=== PATIENT | female | born 1940 | race Caucasian/White ===

== ENCOUNTER 2017-05-03 11:27 | Inpatient (IN) | payer MEDICARE, BC ==
[~2017-05-03] VITALS: Ht 165.1 cm; Wt 77.1 kg
[2017-05-03] VITALS (8 sets, daily range): BP systolic 99–119; BP diastolic 46–66
--- NOTE | 2017-05-03 11:30 | NUR ---
BIBDTR FROM [facility] DT BLOOD IN STOOL SINCE THIS AM, NAD NOTED, VSS, RESP EVEN AND UNLABORED, PUT ON HOSPITAL GOWN AND MONITOR. WAITING FOR MD REBOLLAR.
--- NOTE | 2017-05-03 11:55 | NUR ---
XRAY AT BS
[2017-05-03] MEDS ORDERED: IV NS 0.9% 500 ML BAG IV ONE (12:00)
--- NOTE | 2017-05-03 12:07 | NUR ---
IV INSERTED, BLOOD SAMPLE SENT TO LAB
[2017-05-03 12:08] LABS: BASOPHILS % (AUTO) 0.3 % (0.0-2.0); EOSINOPHILS # (AUTO) 0.1 /CMM (0.0-0.7); EOSINOPHILS % (AUTO) 0.5 % (0.0-6.0); HEMATOCRIT 24 % (33-45); HEMOGLOBIN 7.8 g/dL (11.5-14.8); LYMPHOCYTES # (AUTO) 0.9 /CMM (0.8-4.8); MEAN CORPUSCULAR HEMOGLOBIN 29 PG (26.0-33.0); MEAN CORPUSCULAR HGB CONC 33 g/dl (31.0-36.0); MEAN CORPUSCULAR VOLUME 90 fL (82-100); MONOCYTES # (AUTO) 0.4 /CMM (0.1-1.30); NEUTROPHILS # (AUTO) 8.9 /CMM (1.8-8.9); NEUTROPHILS % (AUTO) 86.2 % (43.0-81.0); PLATELET COUNT (AUTO) 433 /CMM (150-450); RDW COEFFICIENT OF VARIATION 13.1 (11.5-15.0); RED BLOOD CELL COUNT(AUTO) 2.67 MIL/uL (4.0-5.2); WHITE BLOOD COUNT (AUTO) 10.3 K/uL (4.3-11.0)
[2017-05-03 12:17] LABS: CALCIUM, SERUM 9.2 mg/dL (8.5-10.1); CARBON DIOXIDE 24 mmol/L (21-32); CHLORIDE 113 mmol/L (98-107); CREATININE 1.8 mg/dL (0.6-1.3); GLUCOSE 188 mg/dL (74-106); POTASSIUM 4.4 mmol/L (3.5-5.1); SODIUM SERUM 147 mmol/L (136-145); UREA NITROGEN, BLOOD 59 mg/dL (7-18)
[2017-05-03 12:21] LABS: INR 1.03 (0.87-1.13); PROTHROMBIN TIME 10.7 SECS (9.5-12.7)
[2017-05-03 12:23] LABS: ALANINE AMINOTRANSFERASE 8 U/L (12-78); ALBUMIN 2.9 g/dL (3.4-5.0); ALKALINE PHOSPHATASE 40 U/L (46-116); ASPARTATE AMINOTRANSFERASE 15 U/L (15-37); BILIRUBIN,DIRECT 0.1 mg/dL (0.0-0.2); BILIRUBIN,TOTAL 0.1 mg/dL (0.2-1.0); LIPASE 216 U/L (73-393); TOTAL PROTEIN, SERUM 6.5 g/dL (6.4-8.2)
--- NOTE | 2017-05-03 12:23 | NUR ---
Keerthi moyer in [facility] - 05/03/17 at 1332 by MONA BARBIE [place]
[2017-05-03 12:25] LABS: TROPONIN I 0.019 ng/mL (0.00-0.056)
--- NOTE | 2017-05-03 12:27 | NUR ---
CALLED PHARMACY FOR PROTONIX
[2017-05-03] MEDS ORDERED: PANTOPRAZOLE 80 MG in IV NS 0.9% 500 ML IV ONE (12:30)
--- NOTE | 2017-05-03 12:53 | NUR ---
Keerthi moyer in [facility] - 05/03/17 at 1332 by MNOA BARBIE [place]
--- NOTE | 2017-05-03 12:57 | NUR ---
DR TAPIA AT BS
--- NOTE | 2017-05-03 13:23 | NUR ---
REPORT GIVEN TO GIULIANO URENA
--- NOTE | 2017-05-03 13:23 | NUR ---
[place] PAINTER NOTE RECEIVED REPORT FROM GIULIANO SHIPLEY.
[2017-05-03] MEDS ORDERED: ACETAMINOPHEN 325 MG TABLET PO PRN (13:30)
[2017-05-03] MEDS ORDERED: Z GUARD REMEDY 2 OZ OINT TP PRN (13:30)
[2017-05-03] MEDS ORDERED: ONDANSETRON HCL/PF 4 MG/2 ML VIAL IVP PRN (13:30)
[2017-05-03] MEDS ORDERED: PANTOPRAZOLE 40 MG VIAL IV SCH (13:30)
--- NOTE | 2017-05-03 13:45 | NUR ---
GUEST SERVICE AIDETRUER PINION AND WHEEL NOTE PATIENT ARRIVED TO THE UNIT VIA GOURNEY FROM ED C
[2017-05-03] MEDS ORDERED: METF500T4 PO (16:10)
[2017-05-03] MEDS ORDERED: AMLO10TA2 PO (16:10)
[2017-05-03] MEDS ORDERED: ACET325T53 PO (16:10)
[2017-05-03] MEDS ORDERED: FENO145T20 PO (16:10)
[2017-05-03] MEDS ORDERED: MELO-264 PO (16:10)
[2017-05-03] MEDS ORDERED: DONE23TA3 PO (16:10)
[2017-05-03] MEDS ORDERED: MEMA28CA PO (16:10)
[2017-05-03] MEDS ORDERED: ACET-868 PO (16:10)
[2017-05-03] MEDS ORDERED: ONDA4TAB5 PO (16:10)
--- NOTE | 2017-05-03 16:34 | NUR ---
STRATEGIC INSIGHTS LEADPRODUCTION CONTROL EXPERT NOTE (CORRECTED/FULL) PATIENT ARRIVED TO THE UNIT VIA GURNEY FROM ED ACCOMPANIED BY THE RN, RAM PRESS OPERATOR AND THE DAUGHTER/POA. PATIENT IS ALERT, DISORIENTED, CONFUSED. R/AC 20 GAUGE IV IS INTACT AND PATENT. PANTOPRAZOLE IV RUNNING AR 52 ML/HR PRESCRIBED. PATIENT IS SAFELY TRANSFERED TO THE BED FROM THE RNEY. BED IS LOCKED, IN LOWEST POSITION. SIDE RAILS UP X 3. BED ALARM IS ON. CALL LIGHT IS ACCESSIBLE. ALL NEEDS ARE ATTENDED TO. WILL CONTINUE TO MONITOR.
[2017-05-03] MEDS: AMLODIPINE BESYLATE 10 MG TABLET PO SCH (17:30)
[2017-05-03] MEDS ORDERED: PANTOPRAZOLE 80 MG in IV NS 0.9% 500 ML IV PRN (17:30)
[2017-05-03] MEDS ORDERED: Medication Not On Formulary EA (Donepezil HCl 23 MG) PO SCH (17:30)
[2017-05-03] MEDS ORDERED: METFORMIN 500 MG TABLET PO SCH (17:30)
[2017-05-03] MEDS: IV NS 0.9% 1,000 ML IV PRN (19:11)
[2017-05-03] MEDS: FENOFIBRATE NANOCRYS (145 MG) 145 MG TABLET PO SCH (19:12)
--- NOTE | 2017-05-03 19:30 | NUR ---
RN NOTES: RECEIVED AWAKE ON BED WITH HER DAUGHTER PRESENT AT BED SIDE, ON TELE MONITOR SR-100,IV INTACT G#20,CONFUSED BUT ABLE TO ANSWER QUESTION,IV PANTOPRAZOLE ONGOING AT 52 ML/HR.FALL,SAFETY AND ASPIRATION PRECAUTION OBSERVED.PER ENDORSEMENT FOR BT OF 2 UNITS HG-7.8,WILL MONITOR FOR SIGN OF BLEEDING,ON NITRATING ACID MIXER SR-100.
--- NOTE | 2017-05-03 19:35 | NUR ---
AUTO GLASS INSTALLER CLOSING NOTE PATIENT IS RESTING IN BED, SLEEPING, VWNL. R/AC 20 GAUGE IV IS INTACT AND PATENT. PANTOPRAZOLE IV RUNNING AR 52 ML/HR PRESCRIBED. BED IS LOCKED, IN LOWEST POSITION. SIDE RAILS UP X 3. BED ALARM IS ON. CALL LIGHT IS ACCESSIBLE. ALL NEEDS ARE ATTENDED TO. WILL ENDORSE TO THE SOLE SEWER HAND NURSE FOR ANUJ.
--- NOTE | 2017-05-03 20:25 | NUR ---
RN NOTES: -AT 2014 1ST UNIT OF BLOOD TAKEN FROM THE LAB,VERIFIED BLOOD AND RELEASE BY SENIOR MERCHANDISER-MARCO. - DAUGHTER IN PRESENT AT BED SIDE UPON STARTING THE BT,V/S BP-115/46 VT-106 RR-18 T-96.6 SPO2-93% RA. -1ST UNIT RBC STARTED AT 2014,TYPE O POSITIVE,, UNIT NO:[id number],287 ML., EXPIRY ON 05/25/17,BAG CHECKED,VERIFIED WITH ANOTHER RN,CHARGE NURSE NOTIFIED BT WILL BE STARTED.
--- NOTE | 2017-05-03 20:30 | NUR ---
RN NOTES: EKG WAS DONE BY RT, NSR WITH RBBB,RECEIVED CALL FROM [id number] WITH ([facility])THEY CANNOT EXTRACT BLOOD FOR TROPONIN LEVEL DUE TO BT ONGOING,WILL INFORM THEM IF BT IF FINISHED.CONTINUE TO MONITOR PATIENT, DAUGHTER LEFT ATE 2100.
--- NOTE | 2017-05-03 20:40 | NUR ---
RN NOTES; STAYED WITH PATIENT FOR THE FIRST 15 MINUTES OF BT,NO SIGN OF RESPIRATORY DISTRESS NOTED, NO PAIN OR DISCOMFORT ON THE BACK, BREATHING SPONTANEOUSLY, NO SOB,NO HIVES OR SKIN CHANGES NOTED,KEPT ON MONITOR FOR V/Q Q 15MIN FOR THE FIRST HOUR, THE Q 30 MINUTES FOR AN HOUR, THEN Q HOURLY.
--- NOTE | 2017-05-03 21:15 | NUR ---
RN NOTES; DURING TRANSFUSION NOTED, BP IS BECOMING LOW 99/46,PATIENT WAS DIFFICULT TO AROUSE, SHE ONLY RESPOND TO PAINFUL STIMULI,DAUGHTER WAS AT BED SIDE, HEAD TURBINE OPERATOR WAS NOTIFIED,PER DAUGHTER HER MOM LEVEL OF CONSCIOUSNESS IS NOT LIKE THIS, USUALLY SHE RESPOND TO VERBAL COMMAND,DR. HERNANDEZ ORDERED FOR CT BRAIN WITHOUT CONTRAST.DAUGHTER AGREED.
--- NOTE | 2017-05-03 22:25 | NUR ---
RN NOTES: CALLED AGAIN ICU THIS TIME DIE REAMER CAME TO HELP, ABLE TO INSERT IN LEFT AC GAUGE 20, BT RESTARTED. AT 2240-CHARGE NURSE NOTIFIED ITS MORE THAN 3 HOURS INFUSION SHE INSTRUCT TO STOP BT AND DO FLUSHING, LATEST V/S BP-104/52 WA-99 PATIENT WAS MORE ALERTAND COHERENT, SHE IS COOPERATIVE EVEN DURING IV REINSERTION. CONTINUE TO MONITOR FOR TRANSFUSION REACTION. Addendum: 05/04/17 at 0341 by CLAUS CRUZ RN DISREGARD TIME 2225 AND 2240; CORRECT TIME IS 2325 AND 2340
--- NOTE | 2017-05-03 22:40 | NUR ---
RN NOTES; PATIENT ACCIDENTALLY PULLED OUT THE IV CANNULA.BP-105/52 ID-99. CHARGE NURSE TRIED TO INSERT, THERE WAS A GOOD BACK FLOW THEN IT WAS BULGING. CALLED ICU- SPOKE WITH SATYA, REQUESTED TO REINSERTED THE IV CANNULA.
--- NOTE | 2017-05-03 23:00 | NUR ---
RN NOTES; CALLED AGAIN ICU, UNFORTUNATELY THEY ARE VERY BUSY,THEY SAID RN WILL COME. CHARGE NURSE TRIED TO RE-INSERT IV CANNULA, WITH BACK FLOW BUT AGAIN IT BULGE, UNABLE TO START BT.
--- NOTE | 2017-05-03 23:25 | NUR ---
RN NOTES; NURSING RETAIL CLERK INSERTED IV CANNULA ON THE LEFT AC G#20,1 A ATTEMPT WITH GOOD BACK FLOW,PATENT,BT RESTARTED.
[2017-05-04] VITALS (18 sets, daily range): BP systolic 117–149; BP diastolic 63–104
--- NOTE | 2017-05-04 | NUR ---
RN NOTES; PATIENT WAS ACCOMPANIED TO X-RAY DEPARTMENT FOR CT-BRAIN. CAME BACK AT 0020.
--- NOTE | 2017-05-04 01:13 | NUR ---
RN NOTES: KEPT NPO FOR ENDOSCOPY TOMORROW,FOR REPEAT H/H AND TROPONIN LEVEL , BLOOD EXTRACTED AT 0100.
--- NOTE | 2017-05-04 01:15 | NUR ---
RN NOTES; PANTOPRAZOLE INFUSION ONGOING,ON CLOSE WATCH,ASLEEP AT SHORT INTERVALS, NO PAIN OR DISCOMFORT, REPLYING TO VERBAL COMMAND AND SMILING.
[2017-05-04 01:17] LABS: HEMOGLOBIN 7.6 g/dL (11.5-14.8)
--- NOTE | 2017-05-04 01:38 | NUR ---
RN NOTES; REPEAT H/H RESULT IN , NOTIFIED, OK TO GIVE 2ND UNIT OF BT, CT SCAN RESULT=NO ACUTE FINDING,LAND ACQUISITION ANALYST AWARE,ALSO NOTIFIED UNABLE TO FINISHED COMPLETE AMOUNT OF BT, STOP AT 2340.
--- NOTE | 2017-05-04 02:34 | NUR ---
RN NOTES; PATIENT TEMP-99.4 BP-140/74 RR-18 MD-101 SPO2=95%,TYLENOL 2 TABS GIVEN. TEMP RECHECKED AT 0300 T-97.9. BLOOD TAKEN FROM LAB AT 0310AM.
--- NOTE | 2017-05-04 03:25 | NUR ---
RN NOTES; 2ND UNIT OF PRBC TAKEN FROM LAB AND STARTED AT 0325,V/S BP-146/82 AZ-95 RR-20 SPO2-94%,RELEASED BY DIRECTOR OF IN SERVICE EDUCATION CHERYL;DOUBLE CHECKED WITH ANOTHER RN(HARRY),UNIT# [id number], TYPE O POSITIVE, EXPIRY; 05/10/2017, OJICTE=[id number],BAG CHECKED, NO BUBBLES OR LEAKAGE.V/S MONITORED.
--- NOTE | 2017-05-04 03:45 | NUR ---
RN NOTES: STAYED WITH PATIENT FOR THE INITIAL PART OF 2ND UNIT BLOOD TRANSFUSION, AWAKE, CONVERSANT NO COMPLAINTS OF DISCOMFORT.
--- NOTE | 2017-05-04 06:10 | NUR ---
RN NOTES: BT FINISHED AT 0610,NO TRANSFUSION REACTION NOTED, AFEBRILE, NO SKIN CHANGES NOR SOB NOTED.KEPT ON CLOSE WATCH.
[2017-05-04 06:40] LABS: BASOPHILS % (AUTO) 0.5 % (0.0-2.0); EOSINOPHILS # (AUTO) 0.1 /CMM (0.0-0.7); HEMATOCRIT 27 % (33-45); HEMOGLOBIN 8.9 g/dL (11.5-14.8); LYMPHOCYTES % (AUTO) 25.1 % (20.0-44.0); MEAN CORPUSCULAR HEMOGLOBIN 29 PG (26.0-33.0); MEAN CORPUSCULAR HGB CONC 33 g/dl (31.0-36.0); MEAN CORPUSCULAR VOLUME 88 fL (82-100); MONOCYTES # (AUTO) 0.6 /CMM (0.1-1.30); MONOCYTES % (AUTO) 7.2 % (2.0-12.0); NEUTROPHILS # (AUTO) 5.3 /CMM (1.8-8.9); NEUTROPHILS % (AUTO) 66.2 % (43.0-81.0); PLATELET COUNT (AUTO) 307 /CMM (150-450); RDW COEFFICIENT OF VARIATION 14.6 (11.5-15.0); RED BLOOD CELL COUNT(AUTO) 3.02 MIL/uL (4.0-5.2)
[2017-05-04 06:50] LABS: ALANINE AMINOTRANSFERASE 14 U/L (12-78); ALBUMIN 2.8 g/dL (3.4-5.0); ALKALINE PHOSPHATASE 39 U/L (46-116); ASPARTATE AMINOTRANSFERASE 16 U/L (15-37); BILIRUBIN,TOTAL 0.3 mg/dL (0.2-1.0); CALCIUM, SERUM 8.8 mg/dL (8.5-10.1); CARBON DIOXIDE 28 mmol/L (21-32); CHLORIDE 115 mmol/L (98-107); CREATININE 1.2 mg/dL (0.6-1.3); GLUCOSE 115 mg/dL (74-106); PHOSPHORUS 3.3 mg/dL (2.5-4.9); POTASSIUM 3.6 mmol/L (3.5-5.1); SODIUM SERUM 149 mmol/L (136-145); TOTAL PROTEIN, SERUM 6.2 g/dL (6.4-8.2); UREA NITROGEN, BLOOD 37 mg/dL (7-18)
[2017-05-04 06:54] LABS: IRON, SERUM 73 ug/dl (50-175); TOTAL IRON BINDING CAPACITY 406 ug/dl (250-450)
[2017-05-04 06:55] LABS: RETICULOCYTE COUNT 3.4 % (0.6-2.5)
[2017-05-04 06:57] LABS: FERRITIN 145 ng/mL (8-388); THYROID STIMULATING HORMONE 1.097 uIU/mL (0.358-3.74)
--- NOTE | 2017-05-04 07:00 | NUR ---
RN NOTES: FOLLOWED UP IN THE PHARMACY REGARDING THE PANTOPRAZOLE INFUSION AT AROUND 630AM, PER PHARMACIST THEY WILL PREPARE AND SEND IN MS 3 INDEPENDENCE.PATIENT PRE-OP CHECK LIST FOR ENDOSCOPY DONE,UPON ENDORSEMENT PATIENT WAS TAKEN TO OR, SHE FALL ASLEEP.ENDORSED FOR CONTINUITY OF CARE.
--- NOTE | 2017-05-04 07:45 | NUR ---
FISH WORM GROWER NOTES PT SLEEPING WELL. NO APPARENT S/S OF PAIN OR DISCOMFORT. CALL LIGHT WITHIN REACH.
--- NOTE | 2017-05-04 07:55 | NUR ---
HEADWAITER/HEADWAITRESS NOTES PT IN BED, RESTING, VITAL SIGNS STABLE, NO SIGN OF PAIN, NOT IN DISTRESS, PICKED UP BY O.R. STAFF FOR SCHEDULED EGD, LEFT VIA BED IN STABLE CONDITION.
--- NOTE | 2017-05-04 09:55 | NUR ---
TIRE MAINTENANCE TECHNICIAN NOTES PT BACK FROM PROCEDURE WITH O.R. STAFF VIA BED, PT AWAKE, ALERT AND ORIENTED, NO COMPLAINT OF PAIN, NOT IN DISTRESS, VITAL SIGNS TAKEN AND RECORDED, POST ORDERS RECEIVED, NOTED AND CARRIED OUT, WILL CONTINUE TO MONITOR PT.
[2017-05-04] MEDS: AMLODIPINE BESYLATE 10 MG TABLET PO SCH (11:02)
[2017-05-04] MEDS: FENOFIBRATE NANOCRYS (145 MG) 145 MG TABLET PO SCH (11:03)
[2017-05-04] MEDS: MEMANTINE HCL 5 MG TABLET PO SCH ×2 (11:03→17:02)
--- NOTE | 2017-05-04 13:00 | NUR ---
MANAGER STARS NOTES PT IN BED, RESTING, NOT IN PAIN OR DISTRESS, PT SEEN BY DR. FOREMAN AT BEDSIDE, PLAN OF CARE DISCUSSED WITH PT AND DAUGHTER DEEJAY, VERBALIZED UNDERSTANDING, IV FLUIDS INFUSING WELL, CALL LIGHT WITHIN REACH, NEEDS ATTENDED.
[2017-05-04] MEDS: SUCRALFATE 1 G TABLET PO SCH ×3 (13:28→21:04)
--- NOTE | 2017-05-04 18:56 | NUR ---
RN CLOSING NOTES PT COMFORTABLE IN BED, FAMILY AT BEDSIDE. PT AOX2, ANSWERS TO NAME, FOLLOWS DIRECTIONS. NO COMPLAINT OF ABD DISCOMFORT STILL WITH FORMED TARRY STOOL. IV PROTONIX RUNNING PT TOLERATING WELL. PT CRUSHES PILLS WITH TEETH, NO SWALLOW PROBLEM NOTED. PM CARE COMPLETE. PT CALM AND COMFORTABLE. CALL LIGHT WITHIN REACH.
--- NOTE | 2017-05-04 19:30 | NUR ---
PROTECTIVE SIGNAL OPERATIONS SUPERVISOR INITIAL NOTES PT IS IN BED SLEEPING, EASILY AROUSED. TELE MONITOR SHOWING SR 85. NO SIGNS OF SOB OR DISTRESS. BED IS IN LOW AND LOCKED POSITION, CALL LIGHT WITHIN REACH. WILL CONTINUE TO MONITOR PT
[2017-05-04] MEDS: IV NS 0.9% 1,000 ML IV PRN (21:04)
--- NOTE | 2017-05-05 06:08 | NUR ---
MS RN CLOSING NOTES PT IS IN BED RESTING, NO SIGNS OF SOB OR DISTRESS. BREATHING EVENLY AND UNLABORED ON ROOM AIR. IV ACCESS IS INTACT AND PATENT. BED IS IN LOW AND LOCKED POSITION, CALL LIGHT WITHIN REACH. WILL ENDORSE TO DAY SHIFT
--- NOTE | 2017-05-05 07:24 | NUR ---
MS RN OPENING NOTE PATIENT IS ALERT AND ORIENTED x2. PERIODS OF CONFUSION. ABLE TO COMMUNICATE NEEDS. CALL LIGHT WITHIN REACH. SAFETY MEASURES IMPLEMENTED. NO PAIN NOTED AT THIS TIME. NO SOB OR DISTRESS NOTED. ON FULL LIQUID DIET. NO AM LABS TODAY. S/P EGD ON 05/04 WITH BIOPSY. IV ON LEFT AC INTACT AND PATENT NO REDNESS OR SWELLING NOTED. IV FLUIDS RUNNING AT 75 ML/HR, TOLERATING WELL. WILL CONTINUE TO MONITOR FOR GI BLEED. AND THROUGHOUT SHIFT.
[2017-05-05 08:00] VITALS: BP 145/82
[2017-05-05 08:41] VITALS: BP 145/82
[2017-05-05] MEDS: FENOFIBRATE NANOCRYS (145 MG) 145 MG TABLET PO SCH (08:41)
[2017-05-05] MEDS: SUCRALFATE 1 G TABLET PO SCH ×2 (08:41→12:00)
[2017-05-05] MEDS: AMLODIPINE BESYLATE 10 MG TABLET PO SCH (08:41)
[2017-05-05] MEDS: MEMANTINE HCL 5 MG TABLET PO SCH (08:41)
[2017-05-05] MEDS ORDERED: SUCR1TAB26 PO (09:00)
[2017-05-05] MEDS ORDERED: FOLIC ACID 1 MG TABLET PO SCH (09:00)
[2017-05-05] MEDS ORDERED: PANT20TA2 PO (09:00)
--- NOTE | 2017-05-05 12:33 | NUR ---
MS DIRECTOR EMERGENCY NOTE PATIENT IS ALERT AND ORIENTED x2. PERIODS OF CONFUSION. NO PAIN AT THIS TIME. NO SOB OR DISTRESS NOTED. ALL DUE MEDICATIONS GIVEN ORDERED. ALL NURSING CARE NEEDS ATTENDED TO. GAVE DISCHARGE INSTRUCTIONS TO DAUGHTER DEEJAY, PRESCRIPTION GIVEN TO DAUGHTER EXPLAINED RISKS AND BENEFITS FOR MEDICATIONS AND THEIR USAGE. [facility] [place]. ALL BELONGINGS WITH PATIENT AND DAUGHTER. LEFT VIA PRIVATE CAR WITH DAUGHTER, DEEJAY.
== END 2017-05-05 12:20 | DRG 377 ==
LOC: ER 11:30 → TELE 12:00 → MED 05-05
PROVIDERS: ADMIT Internal Medicine; ATTEND Internal Medicine
PROC: 30233N1 Transfusion of Nonautologous Red Blood Cells into Peripheral Vein, Percutaneous Approach (ICD-10-PCS; 2017-05-03)
PROC: 0DB68ZX Excision of Stomach, Via Natural or Artificial Opening Endoscopic, Diagnostic (ICD-10-PCS; 2017-05-04)
PROC: 0DB98ZX Excision of Duodenum, Via Natural or Artificial Opening Endoscopic, Diagnostic (ICD-10-PCS; principal; 2017-05-04 09:08)
DX: K26.4 Chronic or unspecified duodenal ulcer with hemorrhage (principal); G93.41 Metabolic encephalopathy; F03.90 Unspecified dementia, unspecified severity, without behavioral disturbance, psychotic disturbance, mood disturbance, and anxiety; E11.9 Type 2 diabetes mellitus without complications; D62 Acute posthemorrhagic anemia; I25.10 Atherosclerotic heart disease of native coronary artery without angina pectoris; I10 Essential (primary) hypertension; F41.9 Anxiety disorder, unspecified; K44.9 Diaphragmatic hernia without obstruction or gangrene; K29.70 Gastritis, unspecified, without bleeding; Z79.84 Long term (current) use of oral hypoglycemic drugs; E53.8 Deficiency of other specified B group vitamins
CPT/HCPCS: 36415; 70450-TC; 71010-TC; 80048-TC; 80053-TC; 80076-TC; 82306; 82378; 82728-TC; 82746; 83540-TC; 83615-TC; 83690-TC; 83735-TC; 84100-TC; 84443-TC; 84484-TC; 85025-TC; 85027-TC; 85045-TC; 85652-TC; 85730-TC; 86850-TC; 86921-TC; 87040-TC; 87081-TC; 88305-TC; 88313-TC; 88342; A4606; C9113; J2704; J3490; J7030; J7040; J7050; P9016-BL; Z7610

== ENCOUNTER 2017-05-24 19:39 | Emergency (ER) | payer MEDICARE, BC ==
[~2017-05-24] VITALS: Ht 175.3 cm; Wt 77.1 kg
[~2017-05-24 19:39] MED LIST: ACET-868 PO; ACET325T53 PO; AMLO10TA2 PO; DONE23TA3 PO; FENO145T20 PO; MELO-264 PO; MEMA28CA PO; METF500T4 PO; ONDA4TAB5 PO; PANT20TA2 PO; SUCR1TAB26 PO
--- NOTE | 2017-05-24 19:40 | NUR ---
PT BIBRA "RT SIDED FAICLA DROOP AND LT SIDED WEAKNESS"; LAST KNOWN WELL 1.5 HOURS" PT NONVERBAL. RR EVEN AND UNLABORED. NO SOB NOTED. NO NVD AT THIS TIME. PT GOWNED AND PLACED ON MONITOR. DR. BUTLER AT BEDSIDE FOR EVAL.
--- NOTE | 2017-05-24 19:41 | NUR ---
CODE STROKE CALLED.
--- NOTE | 2017-05-24 19:42 | NUR ---
[facility] CALLED. SPOKE TO MARK. DR. FOWLER NEUROLOGSLAVA
[2017-05-24] MEDS ORDERED: IV NS 0.9% 250 ML IV ONE (19:44)
[2017-05-24] MEDS ORDERED: IOHEXOL-350 100 ML VIAL IV ONE (19:44)
--- NOTE | 2017-05-24 19:44 | NUR ---
PT TO CT.
[2017-05-24] MEDS ORDERED: PANT40TA2 PO (19:53)
--- NOTE | 2017-05-24 19:59 | NUR ---
PT RETURNED FROM CT. LAB AT BEDSIDE FOR BLOOD DRAW.
[2017-05-24 20:15] LABS: BASOPHILS # (AUTO) 0.2 /CMM (0.0-0.2); BASOPHILS % (AUTO) 2.8 % (0.0-2.0); EOSINOPHILS # (AUTO) 0.1 /CMM (0.0-0.7); EOSINOPHILS % (AUTO) 1.6 % (0.0-6.0); HEMATOCRIT 33 % (33-45); HEMOGLOBIN 10.8 g/dL (11.5-14.8); LYMPHOCYTES # (AUTO) 0.9 /CMM (0.8-4.8); LYMPHOCYTES % (AUTO) 9.6 % (20.0-44.0); MEAN CORPUSCULAR HEMOGLOBIN 29 PG (26.0-33.0); MEAN CORPUSCULAR HGB CONC 33 g/dl (31.0-36.0); MEAN CORPUSCULAR VOLUME 87 fL (82-100); MONOCYTES # (AUTO) 0.7 /CMM (0.1-1.30); MONOCYTES % (AUTO) 7.5 % (2.0-12.0); NEUTROPHILS % (AUTO) 78.5 % (43.0-81.0); PLATELET COUNT (AUTO) 284 /CMM (150-450); RDW COEFFICIENT OF VARIATION 14.3 (11.5-15.0); RED BLOOD CELL COUNT(AUTO) 3.75 MIL/uL (4.0-5.2); WHITE BLOOD COUNT (AUTO) 8.9 K/uL (4.3-11.0)
[2017-05-24 20:27] LABS: CALCIUM, SERUM 8.6 mg/dL (8.5-10.1); CARBON DIOXIDE 26 mmol/L (21-32); CHLORIDE 104 mmol/L (98-107); GLUCOSE 149 mg/dL (74-106); POTASSIUM 3.6 mmol/L (3.5-5.1); SODIUM SERUM 137 mmol/L (136-145); UREA NITROGEN, BLOOD 14 mg/dL (7-18)
[2017-05-24 20:30] LABS: INR 0.99 (0.87-1.13); PROTHROMBIN TIME 10.3 SECS (9.5-12.7)
[2017-05-24] MEDS ORDERED: ALTEPLASE 100 MG/VIAL VIAL IV ONE (20:30)
[2017-05-24 20:35] LABS: TROPONIN I 0.049 ng/mL (0.00-0.056)
--- NOTE | 2017-05-24 20:45 | NUR ---
pt sitting up in bed, breathingu nlabored, a/o x 1, daughter bedisde, TPA running per protocol
--- NOTE | 2017-05-24 21:39 | NUR ---
SPOKE WITH GIOVANNY FRANKN PRIOR TO TRANSPORT, WILL RETURN CALL LATER TO GET REPORT
--- NOTE | 2017-05-24 22:13 | NUR ---
reprot to Zack NOBLES at [facility] ICU, all questions answered
[2017-05-24 22:18] VITALS: BP 148/82
--- NOTE | 2017-05-24 22:18 | NUR ---
PT TRANSPORT ARRIVED AT THIS TIME: [facility] #AM2 REPROT TO [facility], ALL QUESTIONS ANSWERED. PT TO TRANSPORT TO [facility] ICU #[id number].
== END 2017-05-24 22:29 | disposition short-term general hospital (02) ==
LOC: ER 19:40
DX: I63.9 Cerebral infarction, unspecified (principal); I10 Essential (primary) hypertension
CPT/HCPCS: 36415; 37195; 70450; 70496; 70498; 71010; 80048; 82962; 84484; 85025; 85730; 93005; 99291; A4606; J2997; J7050; Q9967; Z7610